=== PATIENT | male | born 1955 | race Caucasian/White ===

== ENCOUNTER → 2017-01-15 | Day surgery (SDC) | payer OTHER ==
[~2017-01-15] VITALS: Ht 167.6 cm; Wt 68.0 kg
[~2017-01-15] MED LIST: ADVIL200 MG PO; ALEVE220 M2 PO; ASPIRIN325 MG PO; ERYTHROMYCIN BAS1 GM OS; HYDROCODONE/ACE1 TAB PO; KEFLEX500 MG PO; MELOXICAM15 MG PO; NABUMETONE500 MG PO; NAPROSYN375 MG PO; PERCOCET 5/325M1 TAB PO; TRAMADOL HCL50 MG PO
[2017-01-15 14:22] VITALS: BP 113/72
== END | disposition home or self-care (01) | DRG 505 ==
LOC: ORM 06:21
PROVIDERS: ATTEND Podiatrist Foot & Ankle Surgery
PROC: 0SGM07Z Fusion of Right Metatarsal-Phalangeal Joint with Autologous Tissue Substitute, Open Approach (ICD-10-PCS; principal; 2017-01-15)
PROC: 0SGM04Z Fusion of Right Metatarsal-Phalangeal Joint with Internal Fixation Device, Open Approach (ICD-10-PCS; 2017-01-15)
PROC: 0QBL0ZZ Excision of Right Tarsal, Open Approach (ICD-10-PCS; 2017-01-15)
PROC: 0SBP0ZZ Excision of Right Toe Phalangeal Joint, Open Approach (ICD-10-PCS; 2017-01-15)
PROC: 0Q9 Lower Bones, Drainage (ICD-10-PCS; 2017-01-15)
DX: M20.21 Hallux rigidus, right foot (principal); F17.200 Nicotine dependence, unspecified, uncomplicated; M77.41 Metatarsalgia, right foot; M20.41 Other hammer toe(s) (acquired), right foot

== ENCOUNTER 2017-12-02 05:51 | Day surgery (SDC) | payer OTHER ==
[~2017-12-02] VITALS: Ht 167.6 cm; Wt 68.0 kg
[~2017-12-02 05:51] MED LIST changes: +MELOXICAM7.5 MG PO
[2017-12-02] MEDS ORDERED: MOTRIN800 MG PO (09:26)
[2017-12-02] MEDS ORDERED: DILAUDID2 MG PO (09:26)
[2017-12-02 09:44] VITALS: BP 126/84
== END 2017-12-02 10:25 | disposition home or self-care (01) | DRG 352 ==
LOC: ORM 05:51
PROVIDERS: ATTEND Surgery
PROC: 0YU60JZ Supplement Left Inguinal Region with Synthetic Substitute, Open Approach (ICD-10-PCS; principal; 2017-12-02)
DX: K40.90 Unilateral inguinal hernia, without obstruction or gangrene, not specified as recurrent (principal); D17.6 Benign lipomatous neoplasm of spermatic cord; E78.5 Hyperlipidemia, unspecified; M19.90 Unspecified osteoarthritis, unspecified site
CPT/HCPCS: C9290

== ENCOUNTER → 2018-01-12 | Outpatient (REF) | payer OTHER ==
[~2018-01-12] MED LIST changes: +DILAUDID2 MG PO; +MOTRIN800 MG PO
== END | disposition home or self-care (01) | DRG 951 ==
LOC: LABSPEC 07:54
PROVIDERS: ATTEND Internal Medicine
DX: Z12.5 Encounter for screening for malignant neoplasm of prostate (principal); E78.4 Other hyperlipidemia

== ENCOUNTER → 2018-06-24 | Outpatient (REF) | payer OTHER ==
[~2018-06-24] MED LIST changes: +NAPROXEN DR375 MG PO; +ORPHENADRINE100 MG PO; +PREDNISONE20 MG PO
== END | disposition home or self-care (01) | DRG 816 ==
LOC: DI 14:54
PROVIDERS: ATTEND Family Medicine
DX: R59.0 Localized enlarged lymph nodes (principal)

== ENCOUNTER → 2018-06-25 | Outpatient (REF) | payer OTHER ==
[2018-06-25 08:57] LABS: HEMATOCRIT 46.2 % (39.0-50.0); HEMOGLOBIN 15.4 g/dl (14.0-18.0); IMMATURE GRANULOCYTES 0.2 % (0.0-5.0); MEAN CELL VOLUME 96.5 fL CALC (80.0-100.0); MEAN CORPUSCULAR HGB 32.2 pG CALC (26.0-32.0); MEAN CORPUSCULAR HGB CONC 33.3 g/L CALC (32.0-36.0); NEUT# 2.39 thou/uL (1.82-7.42); RED BLOOD COUNT 4.79 mill/uL (4.70-6.10); RED CELL DISTRI WIDTH 11.9 % (11.5-15.5)
[2018-06-25 09:43] LABS: ALBUMIN 4.1 g/dL (3.2-5.0); ALKALINE PHOSPHATASE 45 u/l (38-126); ANION GAP 13 (6-22 (CALC)); BILIRUBIN, TOTAL 0.8 mg/dL (0.0-1.4); BUN 18 mg/dL (9-20); BUN/CREATININE RATIO 22 (12-20 (CALC)); CARBON DIOXIDE 29 mmol/l (22-30); CHLORIDE 101 mmol/l (95-108); CREATININE 0.8 mg/dL (0.7-1.3); GFR > 60 ML/MIN (>=60 (CALC)); GFR FOR AFR.AMER. > 60 ML/MIN (>=60 (CALC)); POTASSIUM 4.6 mmol/l (3.5-5.1); SGOT/AST 28 u/l (17-59); SODIUM 139 mmol/l (137-146); TOTAL PROTEIN 6.5 g/dL (6.3-8.2)
[2018-06-25 10:13] LABS: TSH, 3RD GENERATION 1.14 uIU/mL (0.47 - 4.68)
== END | disposition home or self-care (01) | DRG 951 ==
LOC: LABSPEC 07:42
PROVIDERS: ATTEND Family Medicine
DX: Z00.00 Encounter for general adult medical examination without abnormal findings (principal)

== ENCOUNTER → 2018-06-25 | Outpatient (REF) ==
[2018-06-25 08:46] LABS: CHOLESTEROL HDL RATIO 2.6 (<4.4 (CALC))
== END | disposition home or self-care (01) | DRG 951 ==
LOC: LAB 06:35
PROVIDERS: ATTEND Family Medicine
DX: Z02.6 Encounter for examination for insurance purposes (principal)

== ENCOUNTER 2018-07-12 13:15 | Emergency (ER) | payer OTHER ==
[~2018-07-12] VITALS: Ht 167.6 cm; Wt 68.2 kg
[~2018-07-12 13:15] MED LIST changes: -NAPROXEN DR375 MG PO; -ORPHENADRINE100 MG PO; -PREDNISONE20 MG PO
[2018-07-12] MEDS ORDERED: MELOXICAM15 MG PO (14:13)
[2018-07-12] MEDS ORDERED: PREDNISONE20 MG PO (14:32)
[2018-07-12] MEDS ORDERED: ORPHENADRINE100 MG PO (14:32)
[2018-07-12] MEDS ORDERED: NAPROXEN DR375 MG PO (14:32)
[2018-07-12 14:35] VITALS: BP 109/85
== END 2018-07-12 14:35 | disposition home or self-care (01) | DRG 552 ==
LOC: ED 13:15
DX: M54.5 Low back pain (principal); M54.6 Pain in thoracic spine; F17.210 Nicotine dependence, cigarettes, uncomplicated

== ENCOUNTER 2018-10-29 12:57 | Emergency (ER) | payer OTHER ==
[~2018-10-29] VITALS: Ht 167.6 cm; Wt 72.0 kg
[~2018-10-29 12:57] MED LIST changes: +NAPROXEN DR375 MG PO; +ORPHENADRINE100 MG PO; +PREDNISONE20 MG PO
[2018-10-29 14:00] LABS: URINE BILIRUBIN - DIPSTICK NEGATIVE (NEGATIVE); URINE BLOOD DIPSTICK NEGATIVE (NEGATIVE); URINE COLOR YELLOW; URINE GLUCOSE - DIPSTICK NEGATIVE (NEGATIVE); URINE KETONE TRACE mg/dL (NEGATIVE); URINE LEUK ESTERASE NEGATIVE (NEGATIVE); URINE NITRITE - DIPSTICK NEGATIVE (Negative); URINE PROTEIN - DIPSTICK NEGATIVE (NEG-TRACE); URINE SPECIFIC GRAVITY >=1.030; URINE UROBILINOGEN - DIPSTICK 0.2 E.U./dL (0.2)
[2018-10-29] MEDS ORDERED: MELOXICAM15 MG PO (14:38)
[2018-10-29] MEDS ORDERED: FLEXERIL PO (14:47)
[2018-10-29] MEDS ORDERED: MEDDOSEPAK PO (14:47)
[2018-10-29 14:50] VITALS: BP 122/78
== END 2018-10-29 14:50 | disposition home or self-care (01) | DRG 552 ==
LOC: ED 12:57
DX: M54.42 Lumbago with sciatica, left side (principal); F17.200 Nicotine dependence, unspecified, uncomplicated

== ENCOUNTER 2018-10-31 13:20 | Emergency (ER) | payer OTHER ==
[~2018-10-31] VITALS: Ht 167.6 cm; Wt 72.0 kg
[~2018-10-31 13:20] MED LIST changes: +FLEXERIL PO; +MEDDOSEPAK PO
[2018-10-31 14:00] LABS: HEMATOCRIT 49.9 % (39.0-50.0); HEMOGLOBIN 17.3 g/dl (14.0-18.0); IMMATURE GRANULOCYTES 0.3 % (0.0-5.0); MEAN CELL VOLUME 93.3 fL CALC (80.0-100.0); MEAN CORPUSCULAR HGB 32.3 pG CALC (26.0-32.0); MEAN CORPUSCULAR HGB CONC 34.7 g/L CALC (32.0-36.0); NEUT# 4.91 thou/uL (1.82-7.42); RED BLOOD COUNT 5.35 mill/uL (4.70-6.10); RED CELL DISTRI WIDTH 11.6 % (11.5-15.5)
[2018-10-31 14:12] LABS: ALBUMIN 4.7 g/dL (3.2-5.0); ALKALINE PHOSPHATASE 49 u/l (38-126); ANION GAP 15 (6-22 (CALC)); BILIRUBIN, TOTAL 0.7 mg/dL (0.0-1.4); BUN 19 mg/dL (9-20); BUN/CREATININE RATIO 25 (12-20 (CALC)); CARBON DIOXIDE 27 mmol/l (22-30); CHLORIDE 101 mmol/l (95-108); CREATININE 0.8 mg/dL (0.7-1.3); GFR > 60 ML/MIN (>=60 (CALC)); GFR FOR AFR.AMER. > 60 ML/MIN (>=60 (CALC)); POTASSIUM 4.2 mmol/l (3.5-5.1); SGOT/AST 23 u/l (17-59); SODIUM 139 mmol/l (137-146); TOTAL PROTEIN 7.7 g/dL (6.3-8.2)
[2018-10-31 15:36] VITALS: BP 148/88
== END 2018-10-31 15:42 | disposition home or self-care (01) | DRG 554 ==
LOC: ED 13:20
DX: M16.12 Unilateral primary osteoarthritis, left hip (principal)
CPT/HCPCS: Q9967

== ENCOUNTER 2019-02-16 16:49 | Emergency (ER) | payer OTHER ==
[~2019-02-16] VITALS: Ht 167.6 cm; Wt 68.1 kg
[2019-02-16] MEDS ORDERED: CYCLOBENZAPR5 MG PO (17:02)
[2019-02-16] MEDS ORDERED: ORPHENADRINE C100 MG PO (17:02)
[2019-02-16] MEDS ORDERED: PREDNISONE50 MG PO (17:19)
[2019-02-16 17:35] VITALS: BP 139/85
== END 2019-02-16 17:35 | disposition home or self-care (01) | DRG 552 ==
LOC: ED 16:49
DX: M54.41 Lumbago with sciatica, right side (principal); M25.551 Pain in right hip; S39.93 Unspecified injury of pelvis; M46.90 Unspecified inflammatory spondylopathy, site unspecified; F17.210 Nicotine dependence, cigarettes, uncomplicated

== ENCOUNTER 2019-02-18 06:53 | Emergency (ER) | payer OTHER ==
[~2019-02-18] VITALS: Ht 167.6 cm; Wt 68.6 kg
[~2019-02-18 06:53] MED LIST changes: +CYCLOBENZAPR5 MG PO; +ORPHENADRINE C100 MG PO; +PREDNISONE50 MG PO
[2019-02-18] MEDS ORDERED: TRAMADOL HYDROC50 MG PO (07:46)
[2019-02-18 07:56] VITALS: BP 127/81
== END 2019-02-18 08:14 | disposition home or self-care (01) | DRG 552 ==
LOC: ED 06:53
DX: M54.41 Lumbago with sciatica, right side (principal); G89.29 Other chronic pain

== ENCOUNTER 2024-06-20 07:21 | Day surgery (SDC) | payer OTHER ==
[~2024-06-20] VITALS: Ht 170.2 cm; Wt 72.1 kg
[~2024-06-20 07:21] MED LIST changes: +CRESTOR5 MG PO; +CYCLOBENZAPRINE10 MG PO; +TADALAFIL20 M1; +TRAMADOL HYDROC50 MG PO; +[UNRECOGNIZED DRUG - REMARK] PO
[2024-06-20] MEDS ORDERED: FAMOTIDINE 10MG/ML 2ML SDV IV ONE (07:27)
[2024-06-20] MEDS ORDERED: LACTATED RINGER'S 1,000 ML IV ONE (07:27)
[2024-06-20 09:08] VITALS: BP 118/70
[2024-06-20] MEDS ORDERED: STERILE WATER FOR IRRIGATION 1,000 ML BTL IR ONE (14:01)
[2024-06-20] MEDS ORDERED: LIDOCAINE HCL 2% 2ML SDV IV ONE (16:38)
[2024-06-20] MEDS ORDERED: PROPOFOL 200 MG/20 ML VIAL IV ONE (16:38)
== END 2024-06-20 09:21 | disposition home or self-care (01) | DRG 951 ==
LOC: ENDO 07:21
PROVIDERS: ATTEND Surgery
PROC: 0DBK8ZX Excision of Ascending Colon, Via Natural or Artificial Opening Endoscopic, Diagnostic (ICD-10-PCS; principal; 2024-06-20)
DX: Z12.11 Encounter for screening for malignant neoplasm of colon (principal); K63.5 Polyp of colon; K57.30 Diverticulosis of large intestine without perforation or abscess without bleeding; L72.3 Sebaceous cyst